=== PATIENT | female | born 1995 | race Caucasian/White ===

== ENCOUNTER 2017-12-12 19:04 | Emergency (ER) | payer MEDICAID ==
[~2017-12-12] VITALS: Ht 154.9 cm; Wt 56.2 kg
[2017-12-12 19:49] LABS: BASOPHILS # (AUTO) 0.04 x10^3/uL (0-0.1); BASOPHILS % (AUTO) 1 % (0-1); EOSINOPHILS # (AUTO) 0.59 x10^3/uL (0-0.4); EOSINOPHILS % (AUTO) 8 % (1-7); LYMPHOCYTES # (AUTO) 2.41 x10^3/uL (1-3.4); LYMPHOCYTES % (AUTO) 31 % (22-44); MD NO; MEAN CORPUSCULAR HGB CONC 33.7 g/dL (32.4-35.8); MEAN CORPUSCULAR VOLUME 88.8 fL (80-100); MEAN PLATELET VOLUME 9.3 fL (7.4-10.4); MONOCYTES # (AUTO) 0.51 x10^3/uL (0.2-0.8); MONOCYTES % (AUTO) 7 % (2-9); NEUTROPHILS % (AUTO) 54 % (42-75); PLATELET COUNT 228 x10^3/uL (130-400); RED BLOOD COUNT 4.82 x10^6/uL (3.82-5.3); RED CELL DISTRIBUTION WIDTH 14.7 % (9.6-15.2)
[2017-12-12 19:58] LABS: ALBUMIN 3.9 g/dL (3.4-5.0); ANION GAP 6 mmol/L (5-15); CALCIUM 8.8 mg/dL (8.5-10.1); CHLORIDE 105 mmol/L (98-107)
[2017-12-12 20:30] LABS: MICROSCOPIC NOT IND
[2017-12-12 20:33] LABS: CULTURE INDICATED? NO
[2017-12-12 22:38] LABS: CLUE CELLS NONE SEEN (NONE SEEN); WET PREP WBCS NONE SEEN (FEW)
[2017-12-12] MEDS ORDERED: CEFTRIAXONE 250 MG IM ONE (23:00)
[2017-12-12] MEDS ORDERED: AZITHROMYCIN 500 MG TABLET PO ONE (23:00)
[2017-12-12] MEDS ORDERED: AZITHROMYCIN 250 MG TABLET ONE (23:08)
[2017-12-12] MEDS ORDERED: CEFTRIAXONE 250 MG ONE (23:08)
[2017-12-12 23:16] VITALS: BP 128/72
== END 2017-12-12 23:22 | disposition home or self-care (01) ==
LOC: ED 23:10
DX: N92.0 Excessive and frequent menstruation with regular cycle (principal); R30.0 Dysuria; N89.8 Other specified noninflammatory disorders of vagina; F17.200 Nicotine dependence, unspecified, uncomplicated
CPT/HCPCS: 36415; 80048; 81003; 82040; 84703; 85025; 87210; 87491; 87591; 87808; 96372; 99284; J0696

== ENCOUNTER 2018-04-15 11:48 | Emergency (ER) | payer MEDICAID ==
[~2018-04-15] VITALS: Ht 154.9 cm; Wt 55.0 kg
[2018-04-15 11:52] VITALS: BP 112/87
[2018-04-15 12:30] LABS: BASOPHILS # (AUTO) 0.04 x10^3/uL (0-0.1); BASOPHILS % (AUTO) 0 % (0-1); EOSINOPHILS # (AUTO) 0.28 x10^3/uL (0-0.4); EOSINOPHILS % (AUTO) 3 % (1-7); LYMPHOCYTES # (AUTO) 1.36 x10^3/uL (1-3.4); LYMPHOCYTES % (AUTO) 16 % (22-44); MD NO; MEAN CORPUSCULAR HEMOGLOBIN 30.8 pg (27.0-34.8); MEAN CORPUSCULAR HGB CONC 34.2 g/dL (32.4-35.8); MEAN PLATELET VOLUME 9.1 fL (7.4-10.4); MONOCYTES # (AUTO) 0.43 x10^3/uL (0.2-0.8); MONOCYTES % (AUTO) 5 % (2-9); NEUTROPHILS % (AUTO) 75 % (42-75); PLATELET COUNT 186 x10^3/uL (130-400); RED BLOOD COUNT 4.48 x10^6/uL (3.82-5.3); RED CELL DISTRIBUTION WIDTH 14.1 % (9.6-15.2)
[2018-04-15 12:42] LABS: ALBUMIN 3.6 g/dL (3.4-5.0); ANION GAP 9 mmol/L (5-15); CALCIUM 8.7 mg/dL (8.5-10.1); CHLORIDE 107 mmol/L (98-107); CREATININE 0.64 mg/dL (0.55-1.02)
[2018-04-15 13:58] LABS: MICROSCOPIC NOT IND
[2018-04-15 14:03] LABS: CULTURE INDICATED? NO
== END 2018-04-15 14:37 | disposition home or self-care (01) ==
LOC: ED 14:31
DX: O26.31 Retained intrauterine contraceptive device in pregnancy, first trimester (principal); F15.10 Other stimulant abuse, uncomplicated; Z3A.09 9 weeks gestation of pregnancy
CPT/HCPCS: 36415; 76815; 80048; 81003; 82040; 84702; 85025; 93005; 99285

== ENCOUNTER 2018-05-31 23:14 | Emergency (ER) | payer MEDICAID ==
[~2018-05-31] VITALS: Ht 154.9 cm; Wt 60.0 kg
[2018-05-31 23:18] VITALS: BP 100/65
[2018-05-31] MEDS ORDERED: LIDOCAINE-MPF 2%, 2ML ONE (23:58)
[2018-05-31] MEDS ORDERED: AZITHROMYCIN 250 MG TABLET ONE (23:58)
[2018-05-31] MEDS ORDERED: CEFTRIAXONE 250 MG ONE (23:58)
[2018-06-01] MEDS ORDERED: CEFTRIAXONE 250 MG IM ONE
[2018-06-01] MEDS ORDERED: AZITHROMYCIN 500 MG TABLET PO ONE
[2018-06-01 00:08] LABS: BASOPHILS # (AUTO) 0.05 x10^3/uL (0-0.1); BASOPHILS % (AUTO) 1 % (0-1); EOSINOPHILS # (AUTO) 0.37 x10^3/uL (0-0.4); EOSINOPHILS % (AUTO) 5 % (1-7); LYMPHOCYTES # (AUTO) 1.53 x10^3/uL (1-3.4); LYMPHOCYTES % (AUTO) 20 % (22-44); MD NO; MEAN CORPUSCULAR HEMOGLOBIN 31.1 pg (27.0-34.8); MEAN CORPUSCULAR HGB CONC 34.6 g/dL (32.4-35.8); MEAN CORPUSCULAR VOLUME 89.7 fL (80-100); MEAN PLATELET VOLUME 8.8 fL (7.4-10.4); MONOCYTES # (AUTO) 0.58 x10^3/uL (0.2-0.8); MONOCYTES % (AUTO) 8 % (2-9); NEUTROPHILS # (AUTO) 5.02 x10^3/uL (1.8-6.8); NEUTROPHILS % (AUTO) 67 % (42-75); PLATELET COUNT 205 x10^3/uL (130-400); RED BLOOD COUNT 3.63 x10^6/uL (3.82-5.3); RED CELL DISTRIBUTION WIDTH 13.6 % (9.6-15.2)
[2018-06-01 00:09] LABS: CULTURE INDICATED? YES; MICROSCOPIC INDICATED
[2018-06-01 00:20] LABS: ALBUMIN 2.5 g/dL (3.4-5.0); ANION GAP 7 mmol/L (5-15); CALCIUM 7.7 mg/dL (8.5-10.1); CHLORIDE 110 mmol/L (98-107); CREATININE 0.47 mg/dL (0.55-1.02)
[2018-06-01 00:49] LABS: CLUE CELLS NONE SEEN (NONE SEEN)
[2018-06-01 00:50] LABS: WET PREP WBCS FEW (FEW)
== END 2018-06-01 02:17 | disposition home or self-care (01) ==
LOC: ED 06-01 02:11
DX: O23.11 Infections of bladder in pregnancy, first trimester (principal); O20.9 Hemorrhage in early pregnancy, unspecified; Z3A.13 13 weeks gestation of pregnancy
CPT/HCPCS: 36415; 76815; 80048; 81001; 82040; 84702; 85025; 86901; 87086; 87210; 87491; 87591; 87808; 96372; 99285; J0696

== ENCOUNTER 2018-09-19 19:37 | Emergency (ER) | payer MEDICAID ==
[~2018-09-19] VITALS: Ht 154.9 cm; Wt 66.9 kg
[2018-09-19 20:01] VITALS: BP 103/72
--- NOTE | 2018-09-19 20:23 | NUR ---
PER ER MD'S PT TO BE SEEN ON L&D FIRST, PT TRANSPORTED UP TO LABOR AND DELIVER VIA WHEELCHAIR WITH EDUCATION ASSOCIATE,
[2018-09-19] MEDS ORDERED: AZITHROMYCIN 250 MG TABLET PO ONE (20:30)
[2018-09-19] MEDS ORDERED: CEFTRIAXONE 250 MG IM ONE (20:30)
== END 2018-09-19 20:25 ==
LOC: ED 20:19
DX: A74.9 Chlamydial infection, unspecified (principal); Z20.2 Contact with and (suspected) exposure to infections with a predominantly sexual mode of transmission
CPT/HCPCS: 99281

== ENCOUNTER 2018-09-19 20:28 | Outpatient (CLI) | payer MEDICAID ==
[~2018-09-19] VITALS: Ht 154.9 cm; Wt 66.9 kg
[2018-09-19 20:45] LABS: MICROSCOPIC INDICATED
[2018-09-19 21:05] LABS: AMPHETAMINE SCREEN, URINE Positive (Negative); BARBITURATE SCREEN, URINE Negative (Negative); BENZODIAZEPINE SCREEN, URINE Negative (Negative); CANNABINOID SCREEN, URINE Positive (Negative); COCAINE SCREEN, URINE Negative (Negative); METHADONE SCREEN, URINE Negative (Negative); OPIATE SCREEN, URINE Negative (Negative)
[2018-09-19 21:12] LABS: CLUE CELLS PRESENT (NONE SEEN); WET PREP WBCS FEW (FEW)
[2018-09-19 21:19] VITALS: BP 106/63
== END 2018-09-19 22:31 | disposition home or self-care (01) ==
LOC: LDOP 20:28
PROVIDERS: ATTEND Obstetrics & Gynecology
DX: O23.592 Infection of other part of genital tract in pregnancy, second trimester (principal); N89.8 Other specified noninflammatory disorders of vagina; O26.892 Other specified pregnancy related conditions, second trimester; L29.9 Pruritus, unspecified; Z3A.22 22 weeks gestation of pregnancy
CPT/HCPCS: 36415; 59025; 76805; 80307; 81001; 86592; 86762; 86850; 86870; 86886; 86900; 86902; 87086; 87210; 87340; 87491; 87591; 87806; 87808; 99211; G0463; G0475

== ENCOUNTER 2018-09-28 22:24 | Outpatient (CLI) | payer MEDICAID | END 2018-09-28 23:50 | disposition home or self-care (01) | LOC: LDOP 22:24 | PROVIDERS: ATTEND Obstetrics & Gynecology | DX: O42.913 Preterm premature rupture of membranes, unspecified as to length of time between rupture and onset of labor, third trimester (principal); Z3A.31 31 weeks gestation of pregnancy | CPT/HCPCS: 59025; 99211; G0463 ==

== ENCOUNTER 2018-10-11 15:23 | Emergency (ER) | payer MEDICAID ==
[~2018-10-11] VITALS: Ht 154.9 cm; Wt 65.0 kg
--- NOTE | 2018-10-11 15:31 | NUR ---
PT TO ED FOR SKIN RASH X4 WEEKS. 3RD TRIMESTER , CURRENT EVERYDAY ALCOHOL AND DRUG ABUSE. PT PREVIOUSLY SEEN FOR SKIN RASH AND PRESCRIBED HYDROCORTISONE CREAM THAT IS NO LONGER WORKING. VENDING STAND SUPERVISOR AWARE AND PRESENT FOR EVALUATION. CONNECTED TO MONITORS. VSS. AWAITING MD ASSESMENT.
--- NOTE | 2018-10-11 15:43 | NUR ---
L&D NURSE TO BEDSIDE FOR EVALUATION.
[2018-10-11] MEDS ORDERED: DIPHENHYDRAMINE 25 MG CAPSULE PO ONE (16:00)
[2018-10-11] MEDS ORDERED: PERMETHRIN CRM 5%, 60GM TP ONE (16:00)
[2018-10-11] MEDS ORDERED: PERMETHRIN CRM 5%, 60GM ONE (16:01)
[2018-10-11] MEDS ORDERED: DIPHENHYDRAMINE 50 MG CAPSULE ONE (16:01)
--- NOTE | 2018-10-11 16:19 | NUR ---
L&D RN REMAINS AT BEDSIDE. PT CLEARED FOR DISCHARGE BY ERP, AWAITING CHART AND DISCHARE INSTRUCTIONS.
[2018-10-11 16:30] VITALS: BP 107/60
--- NOTE | 2018-10-11 16:35 | NUR ---
BREAK RN. IN TO WALK PT TO DISCHARGE DESK PER PRIMARY RN REQUEST. PT WAS GIVEN DISCHARGE INSTRUCTIONS, MEDICATION AND PAPERWORK BY TESSA REDDY. PT REQUESTING TO GO TO L&D, DISCUSSED WITH ED ARCHITECTURAL REPRESENTATIVE LAUREN, ED TAR HEATER JOAQUÍN MEZA. LAUREL REDDY ON L&D STATES PT WAS EVALUATED AND IS CLEARED FROM L&D. GLASS GRINDER SARAH CONSULTED, DISCUSSED POC WITH PT, PT CLEARED FOR DISCHARGE FROM ER AND L&D.
--- NOTE | 2018-10-11 16:37 | NUR ---
Per L&D MAUREEN lFanagan, pt has no abnormal uterine activity & has normal heart monitor strip. Pt does not need to go back to L&D for further OB evaluation.
== END 2018-10-11 17:13 | disposition home or self-care (01) ==
LOC: ED 17:07
DX: B86 Scabies (principal)
CPT/HCPCS: 99283; Q0163

== ENCOUNTER 2018-10-12 00:17 | Observation (INO) | payer MEDICAID ==
[~2018-10-12] VITALS: Ht 154.9 cm; Wt 66.0 kg
[2018-10-12 01:57] LABS: AMPHETAMINE SCREEN, URINE Positive (Negative); BARBITURATE SCREEN, URINE Negative (Negative); BENZODIAZEPINE SCREEN, URINE Negative (Negative); CANNABINOID SCREEN, URINE Positive (Negative); COCAINE SCREEN, URINE Negative (Negative); METHADONE SCREEN, URINE Negative (Negative); OPIATE SCREEN, URINE Negative (Negative)
[2018-10-12 02:03] LABS: MICROSCOPIC INDICATED
[2018-10-12] MEDS ORDERED: DIPHENHYDRAMINE 25 MG CAPSULE ONE ×2 (02:11→05:49)
[2018-10-12] MEDS ORDERED: DIPHENHYDRAMINE 50 MG CAPSULE PO ONE (02:30)
[2018-10-12] MEDS ORDERED: PERMETHRIN CRM 5%, 60GM TP SCH (02:30)
[2018-10-12] MEDS ORDERED: DIPHENHYDRAMINE 25 MG CAPSULE PO ONE (03:00)
[2018-10-12] MEDS ORDERED: DIPHENHYDRAMINE 25 MG CAPSULE PO PRN (06:00)
[2018-10-12] MEDS ORDERED: DIPHENHYDRAMINE/ZINC CRM 2%, 30GM TP PRN (06:00)
[2018-10-12] MEDS ORDERED: LORazepam 1MG TABLET PO ONE (06:30)
== END 2018-10-12 21:00 | disposition home or self-care (01) ==
LOC: LDOP 00:17 → LDIP 02:15
PROVIDERS: ADMIT Obstetrics & Gynecology; ATTEND Obstetrics & Gynecology
DX: O42.913 Preterm premature rupture of membranes, unspecified as to length of time between rupture and onset of labor, third trimester (principal); O98.413 Viral hepatitis complicating pregnancy, third trimester; O99.323 Drug use complicating pregnancy, third trimester; O99.343 Other mental disorders complicating pregnancy, third trimester; F32.9 Major depressive disorder, single episode, unspecified; Z3A.35 35 weeks gestation of pregnancy; Z59.0 Homelessness
CPT/HCPCS: 36415; 59025; 80307; 81001; 86803; 86900; 87081; 87086; 87521; G0378; Q0163; 87147

== ENCOUNTER 2018-10-16 14:23 | Inpatient (IN) | payer MEDICAID ==
[~2018-10-16] VITALS: Ht 154.9 cm; Wt 63.6 kg
[2018-10-16 14:36] VITALS: BP 130/82
[2018-10-16 15:21] LABS: AMPHETAMINE SCREEN, URINE Positive (Negative); BARBITURATE SCREEN, URINE Negative (Negative); BENZODIAZEPINE SCREEN, URINE Negative (Negative); CANNABINOID SCREEN, URINE Positive (Negative); COCAINE SCREEN, URINE Negative (Negative); METHADONE SCREEN, URINE Negative (Negative); OPIATE SCREEN, URINE Negative (Negative)
[2018-10-16] MEDS ORDERED: OXYTOCIN 30U/ 0.9% NaCL 500ML 500 ML IV ONE (15:56)
[2018-10-16] MEDS ORDERED: D5%-LACTATED RINGERS 1,000 ML IV SCH (15:56)
[2018-10-16] MEDS ORDERED: LACTATED RINGERS 1,000 ML IV SCH ×2 (15:56→16:54)
[2018-10-16] MEDS ORDERED: BETAMETHASONE 6 MG/ML, 5ML IM ONE ×2 (16:00→16:01)
[2018-10-16] MEDS ORDERED: SODIUM CITRATE/CITRIC ACID 30 ML UDC PO PRN (16:00)
[2018-10-16] MEDS ORDERED: ONDANSETRON 2MG/ML, 2ML IVPush PRN (16:00)
[2018-10-16] MEDS ORDERED: TERBUTALINE 1 MG/ML, 1ML IVPush PRN (16:00)
[2018-10-16] MEDS ORDERED: FENTANYL PF 100 MCG/2ML IV PRN (16:00)
[2018-10-16] MEDS ORDERED: METOCLOPRAMIDE 5 MG/ML, 2ML IVPush PRN (16:00)
[2018-10-16] MEDS ORDERED: FENTANYL PF 100 MCG/2ML IVPush PRN (16:00)
[2018-10-16] MEDS ORDERED: PENICILLIN GK 2,500,000 UNITS in DEXTROSE 5% 100 ML IVPB SCH (16:00)
[2018-10-16] MEDS ORDERED: PENICILLIN GK 5,000,000 UNITS in DEXTROSE 5% 100 ML IVPB ONE (16:00)
[2018-10-16] MEDS ORDERED: NEWBORN KIT ONE (16:31)
[2018-10-16] MEDS ORDERED: LIDOCAINE 1%, 20ML ONE (16:32)
[2018-10-16] MEDS ORDERED: MISOPROSTOL 200 MCG TABLET ONE (16:32)
[2018-10-16] MEDS ORDERED: OXYTOCIN 30U/ 0.9% NaCL 500ML 500 ML ONE ×2 (16:32→20:34)
[2018-10-16] MEDS ORDERED: FENTANYL/BUPIV./NS/PF 250 ML EPIDCONT SCH (16:54)
[2018-10-16] MEDS ORDERED: NALOXONE 0.4 MG/ML, 1ML IVPush PRN (17:00)
[2018-10-16] MEDS ORDERED: FENTANYL/BUPIV./NS/PF 250 ML EPIDCONT ONE (17:00)
[2018-10-16] MEDS ORDERED: FENTANYL PF 500 MCG, BUPIVACAINE/PF 0.5%, 30ML 62.5 ML in SODIUM CHLORIDE 0.9% 177.5 ML EPIDCONT SCH (17:00)
[2018-10-16] MEDS ORDERED: EPHEDRINE 50 MG/ML, 1ML IVPush PRN (17:00)
[2018-10-16] MEDS ORDERED: LACTATED RINGERS 1,000 ML IVBOLUS PRN (17:00)
[2018-10-16 17:02] LABS: BASOPHILS # (AUTO) 0.06 x10^3/uL (0-0.1); BASOPHILS % (AUTO) 1 % (0-1); EOSINOPHILS % (AUTO) 2 % (1-7); LYMPHOCYTES # (AUTO) 2.06 x10^3/uL (1-3.4); LYMPHOCYTES % (AUTO) 24 % (22-44); MD NO; MEAN CORPUSCULAR HEMOGLOBIN 29.1 pg (27.0-34.8); MEAN CORPUSCULAR VOLUME 88.1 fL (80-100); MEAN PLATELET VOLUME 11.1 fL (7.4-10.4); MONOCYTES # (AUTO) 0.62 x10^3/uL (0.2-0.8); MONOCYTES % (AUTO) 7 % (2-9); NEUTROPHILS # (AUTO) 5.64 x10^3/uL (1.8-6.8); NEUTROPHILS % (AUTO) 66 % (42-75); PLATELET COUNT 268 x10^3/uL (130-400); RED BLOOD COUNT 4.79 x10^6/uL (3.82-5.3)
[2018-10-16 17:17] LABS: ALBUMIN 2.7 g/dL (3.4-5.0); ANION GAP 8 mmol/L (5-15); CALCIUM 9.5 mg/dL (8.5-10.1); CHLORIDE 106 mmol/L (98-107)
[2018-10-16 17:18] LABS: INTERNATIONAL NORMALIZED RATIO 0.88 (0.93-1.1); PROTHROMBIN TIME 9.4 Seconds (9.6-11.5)
[2018-10-16 17:21] LABS: ALANINE AMINOTRANSFERASE 50 U/L (12-78); ALKALINE PHOSPHATASE 313 U/L (45-117); CREATININE 0.72 mg/dL (0.55-1.02); TOTAL PROTEIN 7.8 g/dL (6.4-8.2)
[2018-10-16] MEDS ORDERED: BUPIVACAINE 0.25% ONE (17:28)
[2018-10-16] MEDS ORDERED: OXYTOCIN 30U/ 0.9% NaCL 500ML 500 ML IV SCH (19:47)
[2018-10-16] MEDS ORDERED: METOCLOPRAMIDE 5 MG/ML, 2ML IV PRN (20:00)
[2018-10-16] MEDS ORDERED: CARBOPROST TROMETHAMINE 250 MCG/ML, 1ML IM PRN (20:00)
[2018-10-16] MEDS ORDERED: MAGNESIUM HYDROXIDE 8%, 30ML UDC PO PRN (20:00)
[2018-10-16] MEDS ORDERED: GLYCERIN ADULT SUPP PR PRN (20:00)
[2018-10-16] MEDS ORDERED: ACETAMINOPHEN 325 MG TABLET PO PRN ×2 (20:00)
[2018-10-16] MEDS ORDERED: CALCIUM CARBONATE 500 MG TAB.CHEW PO PRN (20:00)
[2018-10-16] MEDS ORDERED: MISOPROSTOL 200 MCG TABLET PR PRN (20:00)
[2018-10-16] MEDS ORDERED: METHYLERGONOVINE 0.2 MG/ML IM PRN (20:00)
[2018-10-16] MEDS ORDERED: DIPH,PERTUSS(ACELL),TET VAC/PF NC IM-VACC PRN (20:00)
[2018-10-16] MEDS ORDERED: OXYcodone/APAP 5/325MG TABLET PO PRN ×2 (20:00)
[2018-10-16] MEDS ORDERED: BISACODYL 10 MG SUPP PR PRN (20:00)
[2018-10-16] MEDS ORDERED: DOCUSATE 100 MG CAPSULE PO PRN (20:00)
[2018-10-16] MEDS ORDERED: ONDANSETRON 2MG/ML, 2ML IV PRN (20:00)
[2018-10-16] MEDS ORDERED: PERMETHRIN CRM 5%, 60GM TP ONE (20:30)
[2018-10-16 21:40] VITALS: BP 107/74
[2018-10-16 22:40] VITALS: BP 110/72
[2018-10-17] VITALS: BP 117/79
[2018-10-17 04:00] VITALS: BP 109/74
[2018-10-17 04:08] LABS: BASOPHILS # (AUTO) 0.05 x10^3/uL (0-0.1); BASOPHILS % (AUTO) 0 % (0-1); EOSINOPHILS # (AUTO) 0.01 x10^3/uL (0-0.4); EOSINOPHILS % (AUTO) 0 % (1-7); LYMPHOCYTES # (AUTO) 1.31 x10^3/uL (1-3.4); LYMPHOCYTES % (AUTO) 11 % (22-44); MD NO; MEAN CORPUSCULAR HEMOGLOBIN 28.7 pg (27.0-34.8); MEAN CORPUSCULAR HGB CONC 33.1 g/dL (32.4-35.8); MEAN CORPUSCULAR VOLUME 86.7 fL (80-100); MEAN PLATELET VOLUME 10.9 fL (7.4-10.4); MONOCYTES # (AUTO) 0.25 x10^3/uL (0.2-0.8); MONOCYTES % (AUTO) 2 % (2-9); NEUTROPHILS # (AUTO) 10.72 x10^3/uL (1.8-6.8); NEUTROPHILS % (AUTO) 87 % (42-75); PLATELET COUNT 254 x10^3/uL (130-400); RED BLOOD COUNT 4.13 x10^6/uL (3.82-5.3); RED CELL DISTRIBUTION WIDTH 15.5 % (9.6-15.2)
[2018-10-17 08:30] VITALS: BP 122/84
[2018-10-17] MEDS ORDERED: hydrOXYzine 50 MG/ML IM PRN (11:00)
[2018-10-17] MEDS: PRENATAL VIT/IRON/FA 1 EACH TABLET PO SCH (11:22)
[2018-10-17 12:00] VITALS: BP 116/71
[2018-10-17 16:15] VITALS: BP 123/84
[2018-10-17] MEDS: IBUPROFEN 600 MG TABLET PO PRN (16:30)
[2018-10-17 20:45] VITALS: BP 117/63
[2018-10-18] MEDS: IBUPROFEN 600 MG TABLET PO PRN ×3 (03:32→16:33)
[2018-10-18] MEDS ORDERED: MEDROXYPROGESTERONE ACETATE 150 MG/ML IM ONE (07:00)
[2018-10-18 07:55] VITALS: BP 122/79
[2018-10-18] MEDS: PRENATAL VIT/IRON/FA 1 EACH TABLET PO SCH (10:26)
[2018-10-18] MEDS ORDERED: HYDR25CA PO (14:00)
[2018-10-18] MEDS ORDERED: IBUP-1222 PO (14:00)
== END 2018-10-18 19:25 | disposition home or self-care (01) | DRG 805 ==
LOC: LDOP 14:23 → LDIP 16:25 → 2NW 21:36
PROVIDERS: ADMIT Obstetrics & Gynecology; ATTEND Obstetrics & Gynecology
PROC: 10E0XZZ Delivery of Products of Conception, External Approach (ICD-10-PCS; principal; 2018-10-16)
PROC: 3E0R3BZ Introduction of Anesthetic Agent into Spinal Canal, Percutaneous Approach (ICD-10-PCS; 2018-10-16)
PROC: 00HU33Z Insertion of Infusion Device into Spinal Canal, Percutaneous Approach (ICD-10-PCS; 2018-10-16)
PROC: 10907ZC Drainage of Amniotic Fluid, Therapeutic from Products of Conception, Via Natural or Artificial Opening (ICD-10-PCS; 2018-10-16)
PROC: 0UQMXZZ Repair Vulva, External Approach (ICD-10-PCS; 2018-10-16)
DX: O36.0930 Maternal care for other rhesus isoimmunization, third trimester, not applicable or unspecified (principal); O60.14X0 Preterm labor third trimester with preterm delivery third trimester, not applicable or unspecified; Z37.0 Single live birth; O98.42 Viral hepatitis complicating childbirth; O99.324 Drug use complicating childbirth; O99.824 Streptococcus B carrier state complicating childbirth; B19.20 Unspecified viral hepatitis C without hepatic coma; B86 Scabies; F11.90 Opioid use, unspecified, uncomplicated; F15.90 Other stimulant use, unspecified, uncomplicated; F17.200 Nicotine dependence, unspecified, uncomplicated; O77.0 Labor and delivery complicated by meconium in amniotic fluid; O71.82 Other specified trauma to perineum and vulva; O99.334 Smoking (tobacco) complicating childbirth; Z3A.35 35 weeks gestation of pregnancy
CPT/HCPCS: 36415; 76805; 76820; 80053; 80307; 82803; 85025; 85610; 85730; 86592; 86850; 86870; 86886; 86900; 86902; 86922; 86923; 87340; 87491; 87591; 87806; G0378; J0702; J2540; J3010; J3490; G0475; J1050; J2590; J7050; J7120; Q0177

== ENCOUNTER 2018-12-21 11:20 | Emergency (ER) | payer MEDICAID ==
[~2018-12-21] VITALS: Ht 154.9 cm; Wt 58.0 kg
[~2018-12-21 11:20] MED LIST: HYDR25CA PO; IBUP-1222 PO
[2018-12-21 11:32] VITALS: BP 121/87
--- NOTE | 2018-12-21 12:03 | NUR ---
pt upright on gurney awake & comfortable, responds approp to staff, NAD, comfort measures provided, SO at BS, call light within reach.
--- NOTE | 2018-12-21 12:17 | NUR ---
pt refused straight cath UA, ERP aware, OK for pt to provide clean cath UA, extra wipes provided to pt with educ of obtaining proper clean catch sample- pt verbalized understanding.
[2018-12-21 12:24] LABS: BASOPHILS # (AUTO) 0.03 x10^3/uL (0-0.1); BASOPHILS % (AUTO) 1 % (0-1); EOSINOPHILS # (AUTO) 0.28 x10^3/uL (0-0.4); EOSINOPHILS % (AUTO) 6 % (1-7); LYMPHOCYTES # (AUTO) 1.58 x10^3/uL (1-3.4); LYMPHOCYTES % (AUTO) 33 % (22-44); MD NO; MEAN CORPUSCULAR HEMOGLOBIN 30.1 pg (27.0-34.8); MEAN CORPUSCULAR HGB CONC 34.3 g/dL (32.4-35.8); MEAN CORPUSCULAR VOLUME 87.8 fL (80-100); MEAN PLATELET VOLUME 8.8 fL (7.4-10.4); MONOCYTES # (AUTO) 0.38 x10^3/uL (0.2-0.8); MONOCYTES % (AUTO) 8 % (2-9); NEUTROPHILS # (AUTO) 2.51 x10^3/uL (1.8-6.8); NEUTROPHILS % (AUTO) 53 % (42-75); PLATELET COUNT 213 x10^3/uL (130-400); RED BLOOD COUNT 4.47 x10^6/uL (3.82-5.3); RED CELL DISTRIBUTION WIDTH 14.4 % (9.6-15.2)
--- NOTE | 2018-12-21 12:25 | NUR ---
pt to CT
[2018-12-21 12:34] LABS: ALANINE AMINOTRANSFERASE 88 U/L (12-78); ALBUMIN 4.1 g/dL (3.4-5.0); CALCIUM 9.1 mg/dL (8.5-10.1); CHLORIDE 109 mmol/L (98-107); CREATININE 0.92 mg/dL (0.55-1.02)
[2018-12-21 12:36] LABS: INTERNATIONAL NORMALIZED RATIO 1.02 (0.93-1.1); PROTHROMBIN TIME 10.7 Seconds (9.6-11.5)
[2018-12-21 12:38] LABS: ALKALINE PHOSPHATASE 79 U/L (45-117); ANION GAP 5 mmol/L (5-15); BILIRUBIN,TOTAL 0.3 mg/dL (0.2-1.0); TOTAL PROTEIN 7.7 g/dL (6.4-8.2)
[2018-12-21 12:55] LABS: MICROSCOPIC INDICATED
--- NOTE | 2018-12-21 13:01 | NUR ---
pt remains upright on gurney awake & comfortable, responds approp to staff, NAD, comfort measures provided, SO at BS, call light within reach.
[2018-12-21 13:12] LABS: CULTURE INDICATED? YES
--- NOTE | 2018-12-21 13:25 | NUR ---
Patient given discharge instructions and they have confirmed that they understand the instructions. Patient ambulatory with steady gait.
== END 2018-12-21 13:39 | disposition home or self-care (01) ==
LOC: ED 12:46
DX: N92.1 Excessive and frequent menstruation with irregular cycle (principal); N30.00 Acute cystitis without hematuria; Z86.19 Personal history of other infectious and parasitic diseases
CPT/HCPCS: 36415; 76830; 80053; 81001; 84703; 85025; 85610; 85730; 87077; 87086; 87186; 99284

== ENCOUNTER 2019-01-05 20:23 | Emergency (ER) | payer MEDICAID ==
[~2019-01-05] VITALS: Ht 154.9 cm; Wt 55.8 kg
[2019-01-05 21:54] LABS: BASOPHILS # (AUTO) 0.04 x10^3/uL (0-0.1); BASOPHILS % (AUTO) 0 % (0-1); EOSINOPHILS # (AUTO) 0.53 x10^3/uL (0-0.4); EOSINOPHILS % (AUTO) 6 % (1-7); LYMPHOCYTES # (AUTO) 2.29 x10^3/uL (1-3.4); LYMPHOCYTES % (AUTO) 24 % (22-44); MD NO; MEAN CORPUSCULAR HEMOGLOBIN 29.7 pg (27.0-34.8); MEAN CORPUSCULAR HGB CONC 33.6 g/dL (32.4-35.8); MEAN CORPUSCULAR VOLUME 88.2 fL (80-100); MEAN PLATELET VOLUME 7.8 fL (7.4-10.4); MONOCYTES # (AUTO) 0.49 x10^3/uL (0.2-0.8); MONOCYTES % (AUTO) 5 % (2-9); NEUTROPHILS % (AUTO) 65 % (42-75); PLATELET COUNT 419 x10^3/uL (130-400); RED BLOOD COUNT 4.48 x10^6/uL (3.82-5.3); RED CELL DISTRIBUTION WIDTH 13.9 % (9.6-15.2)
[2019-01-05 22:05] LABS: ALANINE AMINOTRANSFERASE 56 U/L (12-78); ALBUMIN 3.7 g/dL (3.4-5.0); ANION GAP 4 mmol/L (5-15); CALCIUM 9.5 mg/dL (8.5-10.1); CHLORIDE 106 mmol/L (98-107); CREATININE 0.89 mg/dL (0.55-1.02)
[2019-01-05 22:10] LABS: ALKALINE PHOSPHATASE 100 U/L (45-117); BILIRUBIN,TOTAL 0.2 mg/dL (0.2-1.0); TOTAL PROTEIN 7.8 g/dL (6.4-8.2)
--- NOTE | 2019-01-05 22:40 | NUR ---
STATES HAD A BABY 3 MONTHS AGO. C/O ODOR FROM VAGINA W/ D/C AND PAINFUL URINATION. DENIES FEVERS AT HOME. MONITORS APPLIED, SIDERAILS UP X2, CALL LIGHT WITHIN REACH. URINE SAMPLE TAKEN TO LAB
[2019-01-05 23:04] LABS: MICROSCOPIC INDICATED
[2019-01-05 23:05] LABS: CULTURE INDICATED? YES
[2019-01-05] MEDS ORDERED: CEFTRIAXONE 250 MG ONE (23:23)
[2019-01-05] MEDS ORDERED: AZITHROMYCIN 250 MG TABLET ONE (23:24)
[2019-01-05 23:30] LABS: CLUE CELLS NONE SEEN (NONE SEEN); WET PREP WBCS FEW (FEW)
[2019-01-05] MEDS ORDERED: AZITHROMYCIN 500 MG TABLET PO ONE (23:30)
[2019-01-05] MEDS ORDERED: CEFTRIAXONE 250 MG IM ONE (23:30)
--- NOTE | 2019-01-05 23:30 | NUR ---
PT MEDICATED PER NOV. MONITORS IN PLACE, CALL LIGHT WITHIN REACH
[2019-01-06 00:45] VITALS: BP 114/78
== END 2019-01-06 00:48 | disposition home or self-care (01) ==
LOC: ED 23:59
DX: N30.00 Acute cystitis without hematuria (principal); A54.9 Gonococcal infection, unspecified; A56.8 Sexually transmitted chlamydial infection of other sites
CPT/HCPCS: 36415; 80053; 81001; 84703; 85025; 87077; 87086; 87186; 87210; 87491; 87591; 87808; 96372; 99283; J0696

== ENCOUNTER 2019-01-19 22:18 | Emergency (ER) | payer MEDICAID ==
[~2019-01-19] VITALS: Ht 154.9 cm; Wt 57.2 kg
[2019-01-19 22:23] VITALS: BP 118/74
--- NOTE | 2019-01-19 22:33 | NUR ---
"I HAVE AN STD" C/O YELLOW VAGINAL DISCHARGE. STATES SEEN HERE LAST WEEK FOR SIMILAR S/S. "I COULDNT FILL MY ABX." PROVIDED PT WITH GOWN, MONITORS APPLIED, SIDERAILS UP X2. AWAITING ERP FOR EVAL AND ORDERS
[2019-01-19] MEDS ORDERED: AMOXICILLIN 500 MG CAPSULE ONE (23:20)
--- NOTE | 2019-01-19 23:21 | NUR ---
pt medicated per mar
[2019-01-19] MEDS ORDERED: AMOXICILLIN 500 MG CAPSULE PO SCH (23:30)
== END 2019-01-19 23:28 | disposition home or self-care (01) ==
LOC: ED 22:35
DX: N39.0 Urinary tract infection, site not specified (principal); F17.200 Nicotine dependence, unspecified, uncomplicated
CPT/HCPCS: 99283

== ENCOUNTER 2020-02-16 18:12 | Emergency (ER) | payer MEDICAID ==
[~2020-02-16] VITALS: Ht 154.9 cm; Wt 55.1 kg
--- NOTE | 2020-02-16 19:24 | NUR ---
SARAX1
[2020-02-16] MEDS ORDERED: CEFTRIAXONE 250 MG ONE (20:53)
[2020-02-16] MEDS ORDERED: AZITHROMYCIN 500 MG TABLET ONE (20:53)
[2020-02-16] MEDS ORDERED: AZITHROMYCIN 500 MG TABLET PO ONE (21:00)
[2020-02-16] MEDS ORDERED: CEFTRIAXONE 250 MG IM ONE (21:00)
[2020-02-16 21:08] LABS: HCG UR SG 1.037 (1.003-1.030)
[2020-02-16 21:09] LABS: MICROSCOPIC INDICATED
[2020-02-16 21:22] LABS: CLUE CELLS NONE SEEN (NONE SEEN); WET PREP WBCS MODERATE (FEW)
[2020-02-16 21:48] VITALS: BP 104/63
== END 2020-02-16 22:13 | disposition home or self-care (01) ==
LOC: ED 20:48
DX: A56.8 Sexually transmitted chlamydial infection of other sites (principal); A54.9 Gonococcal infection, unspecified
CPT/HCPCS: 81001; 81025; 87086; 87210; 87491; 87591; 87808; 96372; 99283; J0696

== ENCOUNTER 2020-03-01 21:32 | Emergency (ER) | payer MEDICAID ==
[~2020-03-01] VITALS: Ht 154.9 cm; Wt 54.0 kg
--- NOTE | 2020-03-01 21:35 | NUR ---
PT NOT IN LOBBY WHEN CALLED FOR TRIAGE.
[2020-03-01 21:59] VITALS: BP 94/58
[2020-03-01] MEDS ORDERED: CEFTRIAXONE 250 MG IM ONE (22:30)
[2020-03-01] MEDS ORDERED: AZITHROMYCIN 500 MG TABLET PO ONE (22:30)
[2020-03-01] MEDS ORDERED: AZITHROMYCIN 500 MG TABLET ONE (23:15)
[2020-03-01] MEDS ORDERED: CEFTRIAXONE 1,000 MG ONE (23:15)
== END 2020-03-02 00:08 | disposition home or self-care (01) ==
LOC: ED 23:29
DX: A54.9 Gonococcal infection, unspecified (principal); N89.8 Other specified noninflammatory disorders of vagina
CPT/HCPCS: 87491; 87591; 96372; 99283; J0696

== ENCOUNTER 2020-09-27 00:24 | Emergency (ER) | payer MEDICAID ==
[~2020-09-27] VITALS: Ht 154.9 cm; Wt 55.2 kg
--- NOTE | 2020-09-27 00:42 | NUR ---
[facility] PT CONTACT. PT PRESENTS TO ED C/O LABIAL LESION X1 DAY. PT ALSO C/O "BLACK SPOTS OR WART THINGS LOWER DOWN". PT DENIES ANY VAGINAL DISCHARGE OR BLEEDING. NEW SEXUAL PARTNER RECENTLY. PT SITTING UPRIGHT ON GURNEY, NAD, VSS. PT DENIES ANY NEEDS AT THIS TIME, AWAITING ERP. CALL LIGHT AND PERSONAL BELONGINGS WITHIN REACH.
--- NOTE | 2020-09-27 01:19 | NUR ---
THIS RN AT BEDSIDE WITH ERP TO ASSIST WITH PELVIC EXAM. PT TOLERATED WELL. SAMPLES WALKED TO LAB.
[2020-09-27] MEDS ORDERED: AZITHROMYCIN 250 MG TABLET ONE (01:27)
[2020-09-27] MEDS ORDERED: CEFTRIAXONE 250 MG ONE (01:27)
[2020-09-27] MEDS ORDERED: AZITHROMYCIN 500 MG TABLET PO ONE (01:30)
[2020-09-27] MEDS ORDERED: BICILLIN-LA 2,400,000 UNITS/4 ML IM ONE (01:30)
[2020-09-27] MEDS ORDERED: CEFTRIAXONE 250 MG IM ONE (01:30)
[2020-09-27 01:49] LABS: BASOPHILS % (AUTO) 1 % (0-1); EOSINOPHILS % (AUTO) 7 % (1-7); LYMPHOCYTES % (AUTO) 21 % (22-44); MEAN CORPUSCULAR HEMOGLOBIN 26.7 pg (27.0-34.8); MEAN CORPUSCULAR HGB CONC 33.3 g/dL (32.4-35.8); MONOCYTES % (AUTO) 8 % (2-9); NEUTROPHILS % (AUTO) 63 % (42-75); PLATELET COUNT 273 x10^3/uL (130-400); RED BLOOD COUNT 4.36 x10^6/uL (3.82-5.3); RED CELL DISTRIBUTION WIDTH 15.5 % (9.6-15.2)
[2020-09-27 01:52] LABS: MD NO
[2020-09-27 02:01] LABS: ALBUMIN 3.1 g/dL (3.4-5.0); ANION GAP 4 mmol/L (5-15); CALCIUM 8.8 mg/dL (8.5-10.1); CHLORIDE 108 mmol/L (98-107); CREATININE 0.75 mg/dL (0.55-1.02)
--- NOTE | 2020-09-27 02:03 | NUR ---
PT SITTING UPRIGHT ON GURNEY, NAD, VSS. PT DENIES ANY NEEDS AT THIS TIME. MEDICATED PER EMAR. PT STATES "UNABLE TO PEE AT THIS TIME, ILL DRINK SOME WATER". CALL LIGHT IN REACH.
[2020-09-27 02:04] LABS: CLUE CELLS NONE SEEN (NONE SEEN)
[2020-09-27 02:05] LABS: WET PREP WBCS FEW (FEW)
--- NOTE | 2020-09-27 02:59 | NUR ---
PT SITTING UPRIGHT ON GURNEY, NAD, VSS. PT DENIES ANY NEEDS AT THIS TIME. PT UP TO BATHROOM WITH STEADY GAIT, PT PROVIDED URINE SAMPLE AND SENT TO LAB. CALL LIGHT IN REACH.
[2020-09-27 03:01] LABS: MICROSCOPIC INDICATED
--- NOTE | 2020-09-27 03:04 | NUR ---
ERP AT BEDSIDE
[2020-09-27 03:35] VITALS: BP 92/56
--- NOTE | 2020-09-27 03:44 | NUR ---
Patient given discharge instructions and they have confirmed that they understand the instructions. Patient ambulatory with steady gait.
== END 2020-09-27 03:47 | disposition home or self-care (01) ==
LOC: ED 03:44
DX: A51.0 Primary genital syphilis (principal); A53.9 Syphilis, unspecified; R30.0 Dysuria; N89.8 Other specified noninflammatory disorders of vagina
CPT/HCPCS: 36415; 80048; 81001; 82040; 84703; 85025; 86592; 86780; 87210; 87491; 87591; 87808; 96372; 99284; J0561; J0696

== ENCOUNTER 2020-10-28 02:36 | Emergency (ER) | payer MEDICAID ==
[~2020-10-28] VITALS: Ht 154.9 cm; Wt 59.2 kg
[2020-10-28 02:40] VITALS: BP 112/72
--- NOTE | 2020-10-28 03:23 | NUR ---
Patient given discharge instructions and they have confirmed that they understand the instructions. Patient ambulatory with steady gait.
== END 2020-10-28 03:24 | disposition home or self-care (01) ==
LOC: ED 03:00
DX: F11.10 Opioid abuse, uncomplicated (principal); F17.210 Nicotine dependence, cigarettes, uncomplicated; Z20.2 Contact with and (suspected) exposure to infections with a predominantly sexual mode of transmission; Z72.9 Problem related to lifestyle, unspecified
CPT/HCPCS: 99281; 99406